=== PATIENT | female | born 1970 | race Caucasian/White ===

== ENCOUNTER 2018-04-26 10:41 | Emergency (ER) | payer SELFPAY ==
[2018-04-26 10:46] VITALS: BP 140/63; PULSE 79; TEMP 97.6; BMI 20.7
--- NOTE | 2018-04-26 11:02 | PDOC ---
Attending Attestation - Resident Resident Name: Elmer Najera - HPI HPI: 04/26/18 11:52 Pt presents to the ED complaining of a 4 day history of sore throat, post nasal drip and subjective fever that ended two days ago. Denies nausea, vomiting or abdominal pain. Has taken no medications for her symptoms. - Physicial Exam PE: 04/26/18 11:59 Agree with resident exam. Patient is alert and oriented and in no acute distress. Lungs are clear. Throat has mild erythema with no exudate. - Medical Decision Making 04/26/18 12:00 Pt presents to the ED complaining of symptoms suggestive of viral URI. Rapid strep is negative. Will discharge home.
[2018-04-26] MEDS ORDERED: IBUPROFEN 400 MG TABLET (FP) PO ONE ×2 (11:07→11:11)
--- NOTE | 2018-04-26 11:07 | PDOC ---
History of Present Illness - General Chief Complaint: Respiratory Stated Complaint: BACK PAIN,COUGH,CONGESTION,DIARRHEA Time Seen by Provider: 04/26/18 10:43 History Source: Patient Exam Limitations: No Limitations - History of Present Illness Initial Comments: 47 yo F with a pmh of scoliosis and sciatica presents to the ER after 4 days of subjective fevers, myalgias, ear discomfort, throat pain and sputum production. She says she felt warm but did not measure her temperatures at home. She has been having diffuse body aches for the past 4 days. Her ear discomfort is how this all began but now her ears are better and she is not experiencing any ear discomfort. Currently the throat pain and sputum production are the only things bothering her and disrupted her sleep last night which is the reason she came into the ED. She has not taken anything for pain or for the sickness. She currently denies being in any pain. She also experienced one bout of watery diarrhea this morning. She just finished her period 2 days prior. She endorses right leg pain from her chronic sciatica but admits the pain has not changed in quality for a long time. She has traveled recently to [place] but not outside of the . She denies any recent headaches, blurry vision, ankle/wrist swelling, nausea, vomiting, rashes, chest pain, cough, SOB, difficulty breathing, Joint pain, dysuria, frequency, urgency, hematuria, constipation, appetite changes, weight loss, or dizziness. PCP: None PSH: Tonsillectomy as a child Allergies: NKA, NKDA Social Hx: Smokes half a PPD. Denies drinking or other substance usage. Past History - Past Medical History Allergies/Adverse Reactions: Allergies Allergy/AdvReac Type Severity Reaction Status Date / Time No Known Allergies Allergy Verified 04/26/18 10:42 Home Medications: Ambulatory Orders Pregabalin [Lyrica -] 300 mg PO BID 04/26/18 COPD: No Other medical history: back pain,scoliosis,broken nose - Suicide/Smoking/Psychosocial Hx Smoking History: Current every day smoker Number of Cigarettes Smoked Daily: 10 Information on smoking cessation initiated: Yes Hx Alcohol Use: No Drug/Substance Use Hx: No Review of Systems - Review of Systems Able to Perform ROS?: Yes Comments:: CONSTITUTIONAL: Present: Subjective fever Absent: chills, diaphoresis, generalized weakness, malaise, loss of appetite HEENT: Present: Nasal congestion, throat pain, ear pain Absent: rhinorrhea, throat swelling, difficulty swallowing, mouth swelling, eye pain, visual Changes CARDIOVASCULAR: Absent: chest pain, syncope, palpitations, irregular heart rate, lightheadedness , peripheral edema RESPIRATORY: Absent: cough, shortness of breath, dyspnea with exertion, orthopnea, wheezing, stridor, hemoptysis GASTROINTESTINAL: Present: Diarrhea Absent: abdominal pain, abdominal distension, nausea, vomiting, constipation, melena, hematochezia GENITOURINARY: Absent: dysuria, frequency, urgency, hesitancy, hematuria, flank pain, genital pain MUSCULOSKELETAL: Present: Myalgia Absent: arthralgia, joint swelling SKIN: Absent: rash, itching, pallor HEMATOLOGIC/IMMUNOLOGIC: Absent: easy bleeding, easy bruising, lymphadenopathy, frequent infections ENDOCRINE: Absent: unexplained weight gain, unexplained weight loss, heat intolerance, cold intolerance NEUROLOGIC: Absent: headache, focal weakness or paresthesias, dizziness, unsteady gait, seizure, mental status changes, bladder or bowel incontinence PSYCHIATRIC: Absent: anxiety, depression, suicidal or homicidal ideation, hallucinations. *Physical Exam - Vital Signs Last Vital Signs Temp Pulse Resp BP Pulse Ox 97.6 F 79 18 140/63 98 04/26/18 10:42 04/26/18 10:42 04/26/18 10:42 04/26/18 10:42 04/26/18 10:42 - Physical Exam Comments: GENERAL: Well developed, well nourished. Awake and alert. No acute distress. HEENT: Erythematous posterior oropharynx, no discharge. Normocephalic, atraumatic. PERRLA, EOMI. No conjunctival pallor. Moist mucous membranes. NECK: Painful lymph node along right SCM. Supple. Full ROM. No JVD. CARDIOVASCULAR: Regular rate and rhythm. No murmurs, rubs, or gallops. Distal pulses are 2+ and symmetric. PULMONARY: No evidence of respiratory distress. Lungs clear to auscultation bilaterally. No wheezing, rales or rhonchi. ABDOMINAL: Soft. Non-tender. Non-distended. No rebound or guarding. No organomegaly. Normoactive bowel sounds. MUSCULOSKELETAL Normal range of motion at all joints. No bony deformities or tenderness. No CVA tenderness. EXTREMITIES: No cyanosis. No clubbing. No edema. No calf tenderness. SKIN: Warm and dry. Normal capillary refill. No rashes. No jaundice. NEUROLOGICAL: Alert, awake, appropriate. Cranial nerves 2-12 grossly intact. Normal speech. Gait is normal without ataxia. PSYCHIATRIC: Cooperative. Good eye contact. Appropriate mood and affect. Moderate Sedation - Procedure Monitoring Vital Signs: Procedure Monitoring Vital Signs Temperature 97.6 F 04/26/18 10:42 Pulse Rate 79 04/26/18 10:42 Respiratory Rate 18 04/26/18 10:42 Blood Pressure 140/63 04/26/18 10:42 O2 Sat by Pulse Oximetry (%) 98 04/26/18 10:42 Medical Decision Making - Medical Decision Making 47 yo F with a pmh of scoliosis and sciatica presents to the ER after 4 days of subjective fevers, myalgias, ear discomfort, throat pain and sputum production. - One episdoe of diarrhea this morning - VS WNL DDx IBNLT: Strep, Flu, URI, gastroenteritis, ear infection. Plan: Rapid strep test. Rapid strep negative. This is likely a URI Patient is very well appearing and likely has an URI. Will advise patient to stop smoking for the next few days and give anti smoking counselor manager. - Will advise to take motrin/tylenol for pain control and discomfort. - Patient does not have a PCP so will give referall to residents clinic for FU. Upon discussing results with patient it became clear the actual reason she came to the ER was to get her Lyrica prescription refilled. I gave her the residents clinic at [facility]. She will head there from the ER to establish a PCP and have her Lyrica refilled. *DC/Admit/Observation/Transfer Diagnosis at time of Disposition: URI (upper respiratory infection) - Discharge Dispostion Disposition: HOME Condition at time of disposition: Stable Decision to Admit order: No - Referrals Referrals: [facility] [place] [facility] [Provider Group] - Patient Instructions Printed Discharge Instructions: Smoking Cessation, Common Cold Additional Instructions: You came into the ER with nasal congestion, a sore throat and some body aches. We believe you have an upper respiratory infection. Take motrin/ibuprofen/advil for pain control. Take Tylenol if you have a fever. It is very important to stop smoking. It will help you currently get better and will keep you healthier in all aspects of life moving forward. Make sure to schedule a follow up appointment with the [facility] to establish care with a primary care doctor. He can re-fill your chronic prescriptions. Come back to the ER immediately if your pain worsens, you get a high fever, or have any other new or worsening concerns. Thank you for coming to the [facility] ER. We hope you feel better soon! Print Language: INDONESIAN - Post Discharge Activity
== END 2018-04-26 12:07 | disposition home or self-care (01) ==
LOC: FER 10:41
DX: J06.9 Acute upper respiratory infection, unspecified (principal); F17.210 Nicotine dependence, cigarettes, uncomplicated
CPT/HCPCS: 87070; 87880; 99283-25